=== PATIENT | female | born 1955 | race Hispanic/Latino ===

== ENCOUNTER 2025-02-22 22:48 | Inpatient (IN) | payer OTHER ==
[~2025-02-22] VITALS: Ht 162.6 cm; Wt 83.0 kg
[2025-02-22 23:37] LABS: IMMATURE GRANULOCYTE ABSOLUTE 0.05 K/uL (0-1); NUCLEATED RED BLOOD CELLS 0.0 % (0.0-0.19); PLATELET COUNT (AUTO) 385 K/uL (130-400); RED BLOOD CELL COUNT(AUTO) 4.08 MIL/uL (4.00-5.50); RED CELL DISTRIBUTION WIDTH 12.4 % (11.0-15.5); WHITE BLOOD COUNT (AUTO) 14.3 K/uL (4.8-10.8)
[2025-02-22 23:45] LABS: CREATININE 1.2 mg/dL (0.5-1.0); GLOMERULAR FILTR. RATE CALC 49.0 mL/min (>90); GLUCOSE,RANDOM 228.0 mg/dL (70-105); SODIUM SERUM 138.0 mmol/L (136-145); UREA NITROGEN, BLOOD 15.0 mg/dL (7-18)
[2025-02-22 23:53] LABS: CREATINE KINASE, TOTAL 184.0 U/L (21-232)
[2025-02-23] VITALS (21 sets, daily range): BP systolic 87–140; BP diastolic 50–78; PULSE 57–75; RESP 12–19; TEMP 97.3–98.6; O2SAT 94–96
[2025-02-23] MEDS: ASPIRIN 81MG CHEW TAB PO ONE (00:17)
[2025-02-23 00:43] LABS: APPEARANCE,URINE CLEAR (CLEAR); GLUCOSE, URINE (UA) NEGATIVE (NEGATIVE); LEUKOCYTE ESTERASE ,URINE NEGATIVE Leu/uL (NEGATIVE); NITRATE,URINE NEGATIVE (NEGATIVE); OCCULT BLOOD,URINE NEGATIVE (NEGATIVE)
[2025-02-23 00:51] LABS: ADD UA MICROSCOPIC NO
--- NOTE | 2025-02-23 01:33 | ERN ---
General Chief Complaint: Hip Pain/Injury Stated Complaint: LEFT HIP PAIN Time Seen by MD: 22:57 History of Present Illness Initial Comments Mrs Roe is a 69-year-old female who presents today with a chief complaint of left hip pain. Patient apparently was lift in her grandson after using the restroom when she started feeling pain in the left hip. Allergies: Coded Allergies: latex (Unverified Allergy, Unknown, 02/22/25) Home Meds Reported Medications Ergocalciferol (Vitamin D2) (Vitamin D2) 1,250 Mcg (27053 Unit) Capsule, 1 CAP PO QWEEK for 28 Days, #4 CAP 0 Refills 02/23/25 Metformin HCl (Metformin HCl) 500 Mg Tablet, 1 TAB PO BID for 30 Days, #60 TAB 0 Refills 02/23/25 Atorvastatin Calcium (LIPITOR) 20 Mg Tab, 1 TAB PO DAILY for 30 Days, #30 TAB 0 Refills 02/23/25 Dapagliflozin Propanediol (Farxiga) 5 Mg Tablet, 1 TAB PO DAILY for 30 Days, #30 TAB 0 Refills 02/23/25 Glipizide (Glipizide) 5 Mg Tablet, 1 TAB PO BID for 30 Days, #60 TAB 0 Refills 02/23/25 Losartan Potassium (Losartan Potassium) 50 Mg Tablet, 1 TAB PO DAILY for 30 Days, #30 TAB 0 Refills 02/23/25 Past Medical History Past Medical History: Diabetes-Type II, High Cholesterol, Hypertension Medical History Other: PSORIASIS Past Surgical History: None ROS Dictation Constitutional: Negative for fever,chills, and weight loss Eyes: Negative for injury, pain,redness, and discharge ENT: Negative for injury,pain or swelling Cardiovascular: Negative for chest pain, palpitations, and edema Respiratory: Negative for shortness of breath, cough, and wheezing, Abdomen/GI: Negative for abdominal pain, nausea, vomiting, diarrhea, and constipation Back: Negative for injury and pain : Negative for injury, bleeding and discharge MS/Extremity: Left hip pain Skin: Negative for rash, and discoloration Neuro: Negative for headache, weakness, numbness, tingling, and seizure Psych: Negative for suicide ideation, homicidal ideation, and hallucinations Physical Exam Physical Exam Dictation General: awake, alert, NAD Head/Face: Normocephalic, atraumatic Eyes: PERRL, EOMI, vision at baseline ENT: oral cavity clear, TMs clear, no signs of infection Neck: Trachea midline, supple, no nuchal rigidity Cardiovascular: RRR, normal S1/S2, No MRGs, no JVD Respiratory: CTAB, no respiratory distress, No rales or wheezes Abdomen: Soft, non-tender, non-distended, normal bowel sounds, no guarding or rebound. Skin: Warm, dry, normal turgor, no rash MS/Extremity: Pain with palpation and extension of the left hip. Neuro: COAx4, GCS 15, strength 5/5, CN 2-12 intact, normal cerebellar exam, normal gait, Psych: Normal behavior, mood, and affect normal Results Laboratory and Microbiology Lab and Micro Result Laboratory Tests Test 02/22/25 23:27 02/22/25 23:31 02/22/25 23:37 02/23/25 00:38 Urine Color LIGHT-YELLOW (YELLOW) Urine Appearance CLEAR (CLEAR) Urine pH 7.5 (5.0-8.0) Urine Specific [place] 1.024 (1.001-1.031) Urine Protein NEGATIVE mg/dL (NEGATIVE) Urine Glucose (UA) NEGATIVE mg/dL (NEGATIVE) Urine Ketones NEGATIVE mg/dL (NEGATIVE) Urine Occult Blood NEGATIVE (NEGATIVE) Urine Nitrate NEGATIVE (NEGATIVE) Urine Bilirubin NEGATIVE mg/dL (NEGATIVE) Urine Urobilinogen 0.2 mg/dL (0.2-1.0) Urine Leukocyte Esterase NEGATIVE Marvin/uL White Blood Count 14.3 K/uL (4.8-10.8) H Red Blood Count 4.08 MIL/uL (4.00-5.50) Hemoglobin 12.3 g/dL (12.0-16.0) Hematocrit 36.5 % (36-48) Mean Corpuscular Volume 89.5 fL (79-99) Mean Corpuscular Hemoglobin 30.1 pg (27.0-33.0) Mean Corpuscular Hemoglobin Concent 33.7 g/dL (32.0-36.0) Red Cell Distribution Width 12.4 % (11.0-15.5) Platelet Count 385 K/uL (130-400) Mean Platelet Volume 9.6 fL (7.5-10.5) Immature Granulocyte % (Auto) 0.3 % (0-1) Neutrophils (%) (Auto) 85.3 % (40.0-77.0) H Lymphocytes (%) (Auto) 10.4 % (21.0-51.0) L Monocytes (%) (Auto) 2.9 % (3.0-13.0) L Eosinophils (%) (Auto) 0.6 % (0.0-8.0) Basophils (%) (Auto) 0.5 % (0.0-5.0) Neutrophils # (Auto) 12.2 K/uL (1.8-7.7) H Lymphocytes # (Auto) 1.5 K/uL (1.0-4.8) Monocytes # (Auto) 0.4 K/uL (0.1-1.0) Eosinophils # (Auto) 0.08 K/uL (0.00-0.70) Basophils # (Auto) 0.07 K/uL (0.00-0.20) Absolute Immature Granulocyte (auto 0.05 K/uL (0-1) Nucleated Red Blood Cells 0.0 % (0.0-0.19) Sodium Level 138 mmol/L (136-145) Potassium Level 4.1 mmol/L (3.5-5.1) Chloride Level 104 mmol/L (101-111) Carbon Dioxide Level 26 mmol/L (21-32) Blood Urea Nitrogen 15 mg/dL (7-18) Creatinine 1.2 mg/dL (0.5-1.0) H Glomerular Filtration Rate Calc 49 mL/min (>90) Random Glucose 228 mg/dL (70-105) H Total Calcium 9.0 mg/dL (8.5-10.1) Total Creatine Kinase 184 U/L (21-232) Troponin I High Sensitivity 7702.9 ng/L (4-50) *H 9129 ng/L (4-50) *H B-Type Natriuretic Peptide 105 pg/mL (0-100) H Activated Partial Thromboplast Time 26.7 SEC (26.3-35.5) Total Bilirubin 0.5 mg/dL (0.2-1.0) Direct Bilirubin 0.2 mg/dL (0.0-0.3) Aspartate Amino Transf (AST/SGOT) 32 U/L (10-37) Alanine Aminotransferase (ALT/SGPT) 26 U/L (12-78) Alkaline Phosphatase 72 U/L (50-136) Total Protein 6.8 g/dL (6.0-8.3) Albumin 3.5 g/dL (3.5-5.0) Thyroid Stimulating Hormone (TSH) 1.41 uIU/mL (0.36-3.74) MDM Patient did have elevated enzymes including troponins that are 7000 and then ultimately 9000. Cardiology was consulted and recommended starting heparin drip with Plavix and aspirin. Patient did have films that were initially up another patient. Radiology is currently correcting her right hip films that did not belong to her. MDM: Differential diagnosis: NSTEMI Rationale: Tests considered and ordered secondary to shared decision making include: labs, ECG and radiology Previous outside records reviewed: Old ER visits. Risk of complication and/or morbidity or mortality of patient management: None Medications-Per medication reconciliation Need for hospitalization: Patient does meet criteria for hospitalization. Need for emergency major/minor surgery: No There are no social concerns with this patient. Prescription drug management Prescriptions will include symptomatic care Patient's prior external medical records from other ER visits were reviewed by me as indicated. Prior testing and results from previous visits were reviewed. Prior tests were taken into account with medical decision making and resource utilization, independent historian/historians were used to obtain complete medical history. I independently interpreted the test that were performed, results were reviewed by me and considered findings on radiology if ordered. Medical management and examination interpretation discussions were had by me with other qualified healthcare professionals as indicated for the patient's care. ED Course Orders Procedure Category Date Status Time O2 Nc Keep Sats CPOE 02/22/25 Transmitted Greater 92% 23:16 Notify Md: Spo2 < 88% CPOE 02/22/25 Transmitted 23:16 Cbc With Differential LAB 02/22/25 Complete 23:16 Cardiac Panel LAB 02/22/25 Complete 23:16 Basic Metabolic Panel LAB 02/22/25 Complete 23:16 Morphine 4mg Syg PHA 02/22/25 Complete (Morphine 4mg Syg) 23:30 12 Lead Ekg Tracing- EKG 02/22/25 Logged Technical 23:57 Aspirin 81mg Chew Tab PHA 02/23/25 Complete (Aspirin 81mg Chew 00:00 Troponin I High LAB 02/22/25 Complete Sensitivity 23:57 Urinalysis Profile LAB 02/23/25 Complete 00:33 Initiate Heparin FRANCINE 02/23/25 In Process Treatment Pro 01:09 Partial LAB 8/6/25 Complete Thromboplastin Time 01:09 Heparin 5,000 Unit PHA 02/23/25 In Process Vial (Heparin 5,000 U 02:00 Heparin 25,000 PHA 02/23/25 In Process Units/250ml D5w 02:00 Heparin Protocol CPOE 02/23/25 Transmitted Monitoring 01:09 Heparin 5,000 Unit PHA 02/23/25 Complete Vial (Heparin 5,000 U 01:10 Heparin 25,000 PHA 02/23/25 Complete Units/250ml D5w 01:11 Hip Unilat 2-3vw Left RAD 02/23/25 Resulted 01:16 Clopidogrel 300mg Tab PHA 02/23/25 Complete (Plavix 300mg Tab) 01:30 Metoprolol Tartrate PHA 02/23/25 In Process 25 Mg Tab (Lopressor 09:00 Aspirin 325mg Tab PHA 02/23/25 Complete (Aspirin 325mg Tab) 01:30 Current Medications Medications (Trade) Dose Ordered Sig/Beba Route PRN Reason Start Time Stop Time Status Last Admin Dose Admin Aspirin (Aspirin 325mg Tab) 325 mg ONCE ONCE PO 02/23/25 01:30 02/23/25 01:31 DC 02/23/25 01:35 Aspirin (Aspirin 81mg Chew Tab) 81 mg ONCE ONCE PO 02/23/25 00:00 02/23/25 00:01 DC 02/23/25 00:17 Clopidogrel Bisulfate (plaVIX 300MG TAB) 300 mg ONCE ONCE PO 02/23/25 01:30 02/23/25 01:31 DC 02/23/25 01:35 Heparin Sodium (Porcine) (HEParin 5,000 UNIT VIAL) 5,000 unit STK-MED ONCE .ROUTE 02/23/25 01:10 02/23/25 01:11 DC Heparin Sodium/ Dextrose 250 ml @ As Directed STK-MED ONCE IV 02/23/25 01:11 02/23/25 01:12 DC Morphine Sulfate (morPHINE 4MG SYG) 4 mg ONCE ONCE IVP 02/22/25 23:30 02/22/25 23:31 DC 02/22/25 23:27 Vital Signs Date Time Temp Pulse Resp B/P (MAP) Pulse Ox O2 Delivery O2 Flow Rate FiO2 02/22/25 23:50 98.8 75 20 133/65 98 Room Air* 0 21 02/22/25 22:50 98.1 67 16 139/78 94 Room Air 0 DX & DISP Disposition: Inpatient Departure Impression: Primary Impression: NSTEMI (non-ST elevation myocardial infarction) Condition: Stable Referrals: SAMIRA HAYWOOD (PCP) PRINCESS WALLACE MD Feb 23, 2025 01:33
[2025-02-23] MEDS: ASPIRIN 325MG TAB PO ONE (01:35)
--- NOTE | 2025-02-23 01:43 | HP ---
[facility] HISTORY AND PHYSICAL Date of Service: Feb 23, 2025 Time of Service: 01:43 SAMIRA HAYWOOD (PCP) Attending/supervising physicians: Dr. Dennis and Dr. Menard HISTORY OF PRESENT ILLNESS: Ms. Roe is a 69-year-old female who presented to [facility] for evaluation of left hip pain. She reports that she was moving her grandson and twisted the hip which caused severe pain. The patient denies any fall. In ED the patient was found to be negative for fracture. [Off note: ED physician reports that the patient is x-ray got messed up with another patient's x-ray. The x-ray on the patient chart says "acute subcapital fracture of the right femur" but that is the results of another patient". This will be corrected in the morning per Radiology.] Troponin levels were high at 7702 and repeat troponin level 9129. The patient denied any chest pain, shortness of breath, any other pain, problem or concern besides the hip pain. ED provider reports that he spoke to Dr. Perez. He reports that Dr. Perez recommended heparin drip, Plavix, beta tyler, and aspirin which were administered in ED. ED provider requested patient be admitted to the hospital with the diagnosis of elevated troponins and left hip pain. I assessed the patient at bedside in room number ED 15. The patient continued to deny any chest pain, shortness of breath. He reports that the only pain is on her left hip. I informed her of labs, diagnostics, and plan of care. She verbalized understanding and is in agreement with the plan. Plan and assessment are listed below. REVIEW OF SYSTEMS 12-ROS reviewed with with patient. All pertinent positives mentioned above. Otherwise negative, noncontributory, non-pertinent. PAST MEDICAL HISTORY: As mentioned above PAST SURGICAL HISTORY: None PAST SOCIAL HISTORY: Denies alcohol, tobacco, illicit drug use FAMILY HISTORY: Noncontributory Coded Allergies: latex (Unverified Allergy, Unknown, 02/22/25) PHYSICAL EXAM GENERAL APPEARANCE: The patient is awake, alert, and oriented, in no acute cardiopulmonary distress. NEUROLOGICAL: Cranial nerves II-XII grossly intact. Motor is 5/5 in bilateral upper and lower extremities proximal to distal. No sensory deficits. HEENT: Face is symmetric. Pupils are equal and reactive. Extraocular movements are intact. NECK: Supple. No JVD. No thyromegaly. No submental, submandibular, pre- /postauricular, occipital or supraclavicular lymphadenopathy. CHEST: Normal chest expansion. No Telemetry. LUNGS: Absence of any rales, rhonchi or any wheezing. CARDIOVASCULAR: Regular. S1 and S2 normal. No appreciable rubs, murmurs or gallops. ABDOMEN: Soft, nontender, and nondistended. There is no rebound, voluntary guarding, or rigidity. : Deferred. No Magallanes. EXTREMITIES: Non-edematous and not cyanotic. No clubbing. Good capillary refill. Limited range of motion to the left hip due to pain. SKIN: No skin breakdown. Vital Sign (Last 24 Hours) 02/22/25 23:50 Temp 98.8 Pulse 75 Resp 20 B/P (MAP) 133/65 Pulse Ox 98 O2 Delivery Room Air* O2 Flow Rate 0 FiO2 21 LABS: Laboratory: Test 02/23/25 00:38 02/22/25 23:37 02/22/25 23:31 02/22/25 23:27 Range/Units Troponin I High Sensitivity 9129 *H 4-50 ng/L Activated Partial Thromboplast Time 26.7 26.3-35.5 SEC White Blood Count 14.3 H 4.8-10.8 K/uL Red Blood Count 4.08 4.00-5.50 MIL/uL Hemoglobin 12.3 12.0-16.0 g/dL Hematocrit 36.5 36-48 % Mean Corpuscular Volume 89.5 79-99 fL Mean Corpuscular Hemoglobin 30.1 27.0-33.0 pg Mean Corpuscular Hemoglobin Concent 33.7 32.0-36.0 g/dL Red Cell Distribution Width 12.4 11.0-15.5 % Platelet Count 385 130-400 K/uL Mean Platelet Volume 9.6 7.5-10.5 fL Immature Granulocyte % (Auto) 0.3 0-1 % Neutrophils (%) (Auto) 85.3 H 40.0-77.0 % Lymphocytes (%) (Auto) 10.4 L 21.0-51.0 % Monocytes (%) (Auto) 2.9 L 3.0-13.0 % Eosinophils (%) (Auto) 0.6 0.0-8.0 % Basophils (%) (Auto) 0.5 0.0-5.0 % Neutrophils # (Auto) 12.2 H 1.8-7.7 K/uL Lymphocytes # (Auto) 1.5 1.0-4.8 K/uL Monocytes # (Auto) 0.4 0.1-1.0 K/uL Eosinophils # (Auto) 0.08 0.00-0.70 K/uL Basophils # (Auto) 0.07 0.00-0.20 K/uL Absolute Immature Granulocyte (auto 0.05 0-1 K/uL Nucleated Red Blood Cells 0.0 0.0-0.19 % Sodium Level 138 136-145 mmol/L Potassium Level 4.1 3.5-5.1 mmol/L Chloride Level 104 101-111 mmol/L Carbon Dioxide Level 26 21-32 mmol/L Blood Urea Nitrogen 15 7-18 mg/dL Creatinine 1.2 H 0.5-1.0 mg/dL Glomerular Filtration Rate Calc 49 >90 mL/min Random Glucose 228 H 70-105 mg/dL Total Calcium 9.0 8.5-10.1 mg/dL Total Creatine Kinase 184 21-232 U/L Urine Color LIGHT-YELLOW YELLOW Urine Appearance CLEAR CLEAR Urine pH 7.5 5.0-8.0 Urine Specific [place] 1.024 1.001-1.031 Urine Protein NEGATIVE NEGATIVE mg/dL Urine Glucose (UA) NEGATIVE NEGATIVE mg/dL Urine Ketones NEGATIVE NEGATIVE mg/dL Urine Occult Blood NEGATIVE NEGATIVE Urine Nitrate NEGATIVE NEGATIVE Urine Bilirubin NEGATIVE NEGATIVE mg/dL Urine Urobilinogen 0.2 0.2-1.0 mg/dL Urine Leukocyte Esterase NEGATIVE NEGATIVE Marvin/uL Current Medications Medications (Trade) Dose Ordered Sig/Beba Route PRN Reason Start Time Stop Time Status Last Admin Dose Admin Acetaminophen (TYLenol 325MG TAB) 650 mg Q6H PRN PO FEVER/MILD PAIN LEVEL 1-3 02/23/25 02:00 03/25/25 01:59 UNV Acetaminophen (TYLenol 650MG SUPPOSITORY) 650 mg Q6H PRN RC FEVER / MILD PAIN 1-3 IF NPO 02/23/25 02:00 03/25/25 01:59 UNV Aspirin (Aspirin 81mg Chew Tab) 81 mg DAILY PO 02/23/25 09:00 03/25/25 08:59 UNV Docusate Sodium (COLace 100MG CAP) 100 mg BID PRN PO c 02/23/25 02:00 03/25/25 01:59 UNV Heparin Sodium (Porcine) (HEParin 5,000 UNIT VIAL) *calculation based on ACTUAL B... AD PRN IV HEPARIN PROTOCOL 02/23/25 02:00 03/25/25 01:59 Heparin Sodium/ Dextrose 250 ml @ 0 mls/hr Q6H IV 02/23/25 02:00 03/25/25 01:59 Insulin Human Regular (humuLIN R 100 UNIT/ML 3ML) INSULIN SLIDING SCAL... ACHS SQ 02/23/25 07:30 03/25/25 07:29 UNV Labetalol HCl (TRANdate 20MG SYG) 10 mg Q2H PRN IV SBP GREATER THAN 180 02/23/25 02:00 03/25/25 01:59 UNV Lactulose (Constulose 20gm/ 30ml Udcup) 20 gm Q6H PRN PO CONSTIPATION 02/23/25 02:00 03/25/25 01:59 UNV Metoprolol Tartrate (loprESSOR) 25 mg BID PO 02/23/25 09:00 03/25/25 08:59 Ondansetron HCl (zoFRAN 4MG INJ) 4 mg Q6H PRN IVP NAUSEA/VOMITING 02/23/25 02:00 03/25/25 01:59 UNV Temazepam (restORIL 15 MG CAP) 15 mg HS PRN PO INSOMNIA/SLEEP 02/23/25 02:00 03/25/25 01:59 UNV DIAGNOSTICS / RADIOLOGY: [ ] ASSESSMENT: Critically elevated troponins, rule out ACS Intractable left hip pain s/p twisting motion. Diabetes mellitus with hyperglycemia Hypertension Hypercholesteremia Psoriasis PLAN: -Admit to PCCU with continuous telemetry monitoring. -Troponin levels and EKG series. -Cardiology was consulted by ED who recommended heparin drip, Plavix, beta tyler, aspirin. [employer] team we will follow recommendations. -Resume home medication atorvastatin, losartan. -Hold home medication vitamin D2 weekly supplement, metformin, glipizide, and Farxiga. -Nitroglycerin sublingual as needed chest pain -2D echo in a.m. with heart clinic to read. -PRN medications for pain management, fever, N/V, constipation, hypertension. -Oxygen supplement as needed to maintain oxygen levels equal to or greater than 92% -Blood pressure checks every 4 hours and as needed. -Reconcile home medications once available. -Glucometer checks before meals and at bedtime with insulin regular sliding scale. -Blood pressure checks every 4 hours and as needed. - Monitor renal and liver function. -Monitor electrolytes and treat accordingly PRN -AM labs. -GI and DVT prophylaxis -Further plan/orders per hospitalization course. ADVANCED CARE PLANNING 1. Which of the following were discussed? Hospice Care - No Therapeutic options - Yes Advance Directives - Yes Other discussions - 2. Discussed with who? The patient 3. Voluntary nature of this service was explained to the patient? Yes 4. Amount of time spent - __ Over 35 minutes 5. Reviewed by Physician? (if this service was performed by BECKY) Yes ATTESTATION BY PHYSICIAN I have seen and examined the patient. I reviewed the documentation, medical decision making, and treatment plan as noted by the resident provider above. I agree with the findings and plan of care. [facility] Feb 23, 2025 01:43
[2025-02-23 02:10] LABS: ASPARTATE AMINOTRANSFERASE 32.0 U/L (10-37); TOTAL PROTEIN, SERUM 6.8 g/dL (6.0-8.3)
--- NOTE | 2025-02-23 02:22 | HMCIMG ---
EXAM: CR Pelvis and Left Hip CLINICAL HISTORY: Pain. COMPARISON: None provided. FINDINGS: Questionable acute subcapital fracture of the right femur with mild femoral neck shortening. Mild osteopenia. 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 The remaining bones are within normal limits. Grossly unremarkable soft tissues. IMPRESSION: Questionable acute subcapital fracture of the right femur with mild femoral neck shortening. Recommend CT right hip for further evaluation. /[place]
[2025-02-23] MEDS ORDERED: METF-444 PO (03:26)
[2025-02-23] MEDS ORDERED: ATOR10 PO (03:26)
[2025-02-23] MEDS ORDERED: ERGO500093 PO (03:26)
[2025-02-23] MEDS ORDERED: GLIP5TAB15 PO (03:26)
[2025-02-23] MEDS ORDERED: DAPA5TAB PO (03:26)
[2025-02-23] MEDS ORDERED: LOSA50TA64 PO (03:26)
--- NOTE | 2025-02-23 05:09 | NUR ---
PATIENT REFUSED ABG
--- NOTE | 2025-02-23 06:21 | PN ---
[facility] Cardiology Progress Note CARDIOLOGY CONSULTATION FEBRUARY 23, [address] Carmela Hawthorne Chief complaint: This is a 69-year-old female who presents with left hip pain whom we are asked to evaluate for elevated troponin. History of present illness: The patient had listed her granddaughter up at home and began experiencing left pain. She came to the emergency room for evaluation of this problem. Incidentally she had troponins checked which were 7702 and 9129. The patient denies any chest pain or shortness of breath. Her electrocardiogram showed sinus rhythm with nonspecific ST-T abnormalities. Past medical history: The patient has a history of hypertension diabetes mellitus type 2 and dyslipidemia. She was seen several months ago by Dr. Hawthorne for evaluation of a murmur. Her 2D echo showed normal systolic LV function and a sclerotic aortic valve. At that time she was also noted to have a bruit and was told that she could have a carotid Doppler study in six months. There was no history of rheumatic fever heart murmur previous myocardial infarction CVAs ulcers phlebitis thyroid disease kidney or liver disease. Review of systems: Denies syncope PND orthopnea chest pains palpitations or edema. No recent fevers sweats or chills. No hemoptysis hematemesis or melena. Allergies: Latex Surgical history: No prior surgical procedures Social history: She is a nonsmoker nondrinker Family history: There was no family history of early atherosclerotic heart disease Home Medications: Atorvastatin 20 mg daily dapagliflozin 5 mg daily vitamin-D glipizide 5 mg daily losartan 50 mg daily metformin 500 mg b.i.d.. Hospital medications: Aspirin 81 mg daily atorvastatin 10 mg daily clopidogrel 75 mg daily after a 300 mg loading dose in the emergency room. Heparin protocol losartan 50 mg daily metoprolol tartrate 25 mg b.i.d.. Physical exam: Blood pressure is 130/60 heart rate is in the 60s the patient is afebrile. There was no elevation of the jugular venous pressure . Carotid bruit noted. S1 normal S2 physiologically split. 2/6 systolic ejection murmur is present. Abdomen is soft extremities show no edema. She is alert and oriented. Laboratory studies: Potassium 4.1 BUN 15 creatinine 1.2 estimated GFR of 49. White count 93905 hemoglobin 12.3 platelet count [id number]. Hip x-ray : Questionable acute subcapital fracture of the right femur and shortening of the right femoral neck Assessment: 1. Right hip pain with questionable subcapital fracture of the right femur on hip x-ray 2. Elevated troponins consistent with non ST-elevation myocardial infarction 3. Diabetes mellitus type 2 4. Chronic kidney disease stage IIIA 5. Dyslipidemia 6. Hypertension Plan: Plans are for CT scan of the right hip as recommended by Radiology. We will continue with aspirin clopidogrel heparin metoprolol. 2D echocardiogram is pending. I have had a discussion with the the patient regarding her troponin elevations. Findings would suggest a non ST-elevation NH. as noted she had no chest pain and nonspecific ST findings on EKG. We have discussed options and I have advised left heart catheterization. Risks benefits and alternatives have been fully discussed and reviewed. If there was no significant coronary artery disease we will also consider a CT pulmonary angiogram. NAKIA LOPEZ MD Feb 23, 2025 06:21
--- NOTE | 2025-02-23 07:14 | EKG ---
[facility] Test Date: 2025-02-22 Test Time: 23:59:52 Pat Name: MARYANNE WAITE Department: EDHIP Room: 224 Gender: F Mass Spec: [id number] : 1955 Requested By: PRINCESS WALLACE Order Number: [id number] Reading MD: Javan Hawthorne Measurements Intervals [place] Rate: 66 P: 29 CT: 176 QRS: 25 QRSD: 79 T: 122 QT: 434 QTc: 454 Interpretive Statements Sinus rhythm Nonspecific T abnormalities, lateral leads No previous ECG available for comparison Electronically Signed On 02-26-2025 19:46:37 CDT by Javan Hawthorne Please click the below link to view image of tracing.
[2025-02-23 07:27] LABS: NUCLEATED RED BLOOD CELLS 0.0 % (0.0-0.19); PLATELET COUNT (AUTO) 367.0 K/uL (130-400); RED BLOOD CELL COUNT(AUTO) 3.83 MIL/uL (4.00-5.50); RED CELL DISTRIBUTION WIDTH 12.6 % (11.0-15.5); WHITE BLOOD COUNT (AUTO) 11.4 K/uL (4.8-10.8)
[2025-02-23] MEDS ORDERED: 0.9% NACL 500ML IV.SOLN 500 ML IV SCH (07:30)
--- NOTE | 2025-02-23 08:17 | NUR ---
HEPARIN ON HOLD APTT>139
[2025-02-23 08:23] LABS: ASPARTATE AMINOTRANSFERASE 39.0 U/L (10-37); CREATININE 0.9 mg/dL (0.5-1.0); GLOMERULAR FILTR. RATE CALC 69.0 mL/min (>90); GLUCOSE,RANDOM 140.0 mg/dL (70-105); PHOSPHORUS 4.8 mg/dL (2.5-4.9); SODIUM SERUM 140.0 mmol/L (136-145); TOTAL PROTEIN, SERUM 6.6 g/dL (6.0-8.3); UREA NITROGEN, BLOOD 14.0 mg/dL (7-18)
[2025-02-23] MEDS: ASPIRIN 81MG CHEW TAB PO SCH (09:00)
--- NOTE | 2025-02-23 09:17 | NUR ---
HEPARIN RESTARTED AT 15 U/KG/HR
--- NOTE | 2025-02-23 10:05 | NUR ---
PT IS CONSENTED FOR THE LEFT HEART CATHETERIZATION.GROIN SHAVED
[2025-02-23] MEDS ORDERED: LIDOCAINE HCL 400MG/20ML VIAL ONE (10:27)
[2025-02-23] MEDS ORDERED: HEParin-NS 1,000 UNIT/500 ML 1,000 ML IV ONE (10:28)
[2025-02-23] MEDS ORDERED: IOHEXOL 350 MG/ML 100ML INFUS..BTL IV ONE (10:30)
--- NOTE | 2025-02-23 10:43 | NUR ---
DCP:HOME Pt currently lives alone in her home. Pt does not have any DME, home health, or provider services. Pt states that she is able to complete ADLs independently. PCP is Marta Tena and uses [facility] for any RX needs. At DC pt will want to go home and family can assist with transportation. Addendum: 02/23/25 at 1045 by JASVIR ROLDAN SS Amended: Links added.
--- NOTE | 2025-02-23 10:46 | NUR ---
PT TO [employer]
[2025-02-23] MEDS ORDERED: MIDAZOLAM HCL 1 MG/ML 2ML VIAL ONE (10:59)
[2025-02-23] MEDS ORDERED: IOHEXOL-350 50ML VIAL IV ONE (11:06)
[2025-02-23] MEDS ORDERED: DEXTROSE 50%-WATER 50 ML DISP.SYRIN IV PRN (11:30)
[2025-02-23] MEDS ORDERED: GLUCAGON 1MG KIT 1 MG ML IM PRN (11:30)
--- NOTE | 2025-02-23 11:31 | PRN ---
Cath Procedure Report CATH PROCEDURE REPORT CARDIAC CATHETERIZATION REPORT Date of Service: Feb 23, 2025 After informed consent the patient was prepped and draped in the usual fashion. She received 1 mg of Versed for conscious sedation. She received 16 cc of 2% xylocaine in the right inguinal area. A six [place] sheath was introduced into the right femoral artery using modified Seldinger technique. A Jelena four right six [place]ian diagnostic catheter was advanced over guidewire to the aortic root. Wire was removed and catheter engaged into the [place] right coronary artery which was visualized. The catheter was removed and a Jelena four left six [place] diagnostic catheter was advanced over guidewire to the aortic root. Wire was removed and catheter engaged into the left main coronary artery. The left coronary system was visualized in multiple planes the catheter was removed. A pigtail catheter was then advanced over guidewire across the aortic valve. Wire was removed and hemodynamics measured. A ventriculogram in the RICHARDS projection was performed and pullback with continuous hemodynamic monitoring was performed. The catheter was removed. ACT was 164. A sheathogram performed and Angio-Seal closure device applied. The entire procedure was well tolerated without complications. Findings: The right coronary artery is a nondominant vessel free of obstruction. The left main coronary artery is free of obstruction. The circumflex artery is a superdominant vessel. It is free of obstruction. It gives rise to two obtuse marginal artery is free of obstruction and a PDA extend to the apex of the heart also free of obstruction. The left anterior descending artery extends to the apex of the heart distally becomes a 1 mm vessel. It is free of obstruction gives rise to normal diagonal branches. There was no aortic stenosis plus one mitral regurgitation. There was ballooning of the apex consistent with a diagnosis of takotsubo syndrome. LV ejection fraction of 35%. Summary: Normal coronary arteries and ballooning of the apex consistent with ta kotsubo syndrome. Medical management advised. Report dictated by NAKIA Jones MD, MD Feb 23, 2025 11:31
[2025-02-23 12:40] LABS: INR 1.08 (0.85-1.15)
[2025-02-23 16:23] LABS: INR 0.97 (0.85-1.15)
--- NOTE | 2025-02-23 22:08 | HMCSR ---
APPROVED REPORT EXAM: Two-dimensional and M-mode echocardiogram with Doppler and color Doppler. INDICATION ICD: Elevated troponin 2D Dimensions RVDd2.6 cmLVEF(%)52.0 (>50%)LVED Vol(simp.)94.0 mL IVSd1.1 (0.7-1.1cm)FS(%)26 %LVES Vol(simp.)57.0 mL LVDd4.4 (3.8-5.6cm)LA (2D)3.2 (1.6-4.0cm)LVEF(%, simp.)36 % PWd1.2 (0.7-1.1cm)Ao Root(2D)3.1 (2.0-3.7cm)LA ESV INDEX (BP)20.74 mL/m2 IVSs1.5 cmLVOT diam1.9 (1.8-2.4cm) LVDs3.3 (2.5-4.0cm) PWs1.5 cm Deformation Strain Apical 4-10.7 % Apical 2-12.4 % Apical 3-10.7 % Global Strain-11.3 % M-Mode Dimensions EPSS0.7 cm LA (MM)4.9 (1.6-4.0cm) Ao Root(MM)3.2 (2.0-3.7cm) Aortic Valve AoV Vmax2.0 m/Vel Peak GR15.3 mmHgLVOT Vmax1.1 m/s AoV VTI0.4 mAo Mean GR8.4 mmHgLVOT VTI0.26 m JOSE (VMAX)1.53 cm2AVA (VTI) 1.9 cm2 Mitral Valve MV E Vmax81.5 cm/sDECEL Actj408 ms MV A Kxvy547.7 cm/sP 1/2 T100 ms E/A ratio0.7MVA (PHT)2.2 cm2 TDI E/E' Fotyan03.3E/E' Ppkrsyc08.1 Medial E' Peak V3.66 cm/sLateral E' Peak V5.38 cm/s Pulmonary Valve PV Vmax1.1 m/sPV VTI0.24 mPV Mean GR2.9 mmHg PV Peak GR4.8 mmHg Left Ventricle There is apical ballooning of the left ventricle. The mid/apical anterior, inferior, anterolateral, a nd inferolateral ko are severely hypokinetic/akinetic. The basal segments of all ko are grossly normal in function. Mild concentric left ventricular hypertrophy. Left ventricle systolic function i s moderate to severely depressed, estimated LVEF 35-40%. Stage I diastolic dysfunction. Right Ventricle The right ventricle is normal size. The right ventricular systolic function is normal. Atria The left atrium size is normal. The right atrium size is normal. Aortic Valve Aortic valve is trileaflet. The leaflets are moderately thickened and calcified. Trace aortic regurgi tation. There is no aortic valvular stenosis. Mitral Valve The mitral valve is normal in structure. The leaflets are mildly thickened and calcified. Trace mitr al regurgitation. There is no mitral valve stenosis. Tricuspid Valve The tricuspid valve is normal in structure. Trace tricuspid regurgitation. RVSP is normal. Pulmonic Valve Pulmonic valve is not well visualized. Great Vessels The aortic root is normal in size. The IVC is normal in size and collapses >50% with inspiration. Pericardium There is no pericardial effusion. Other Information Quality : Adequate Conclusion There is apical ballooning of the left ventricle. Mild concentric left ventricular hypertrophy. The mid/apical anterior, inferior, anterolateral, and inferolateral ko are severely hypokinetic/ak inetic. The basal segments of all ko are grossly normal in function. Left ventricle systolic function is moderate to severely depressed, estimated LVEF 35-40%. Stage I diastolic dysfunction. Trace aortic regurgitation. Trace mitral regurgitation. Trace tricuspid regurgitation. PASP normal. There is no pericardial effusion. The above-mentioned findings are highly suggestive of Takotsubo cardiomyopathy. Clinical correlation is advised.
[2025-02-24] VITALS (7 sets, daily range): BP systolic 104–166; BP diastolic 20–72; PULSE 62–100; RESP 18–22; TEMP 97.9–98.8; O2SAT 94–96
[2025-02-24 04:10] LABS: NUCLEATED RED BLOOD CELLS 0.0 % (0.0-0.19); PLATELET COUNT (AUTO) 321.0 K/uL (130-400); RED BLOOD CELL COUNT(AUTO) 3.66 MIL/uL (4.00-5.50); RED CELL DISTRIBUTION WIDTH 12.6 % (11.0-15.5); WHITE BLOOD COUNT (AUTO) 8.3 K/uL (4.8-10.8)
[2025-02-24 04:26] LABS: CREATININE 0.9 mg/dL (0.5-1.0); GLOMERULAR FILTR. RATE CALC 69.0 mL/min (>90); GLUCOSE,RANDOM 120.0 mg/dL (70-105); PHOSPHORUS 4.4 mg/dL (2.5-4.9); SODIUM SERUM 139.0 mmol/L (136-145); UREA NITROGEN, BLOOD 17.0 mg/dL (7-18)
--- NOTE | 2025-02-24 06:42 | PN ---
[facility] Cardiology Progress Note CARDIOLOGY PROGRESS NOTE FEBRUARY 24, 2025 Problems: 1. Left hip pain with suspected subcapital fracture of the right femur 2. Non ST-elevation myocardial infarction 3. Takotsubo syndrome with normal coronary arteries and apical ballooning, ejection fraction 35% 4. Diabetes mellitus type 2 5. Chronic kidney disease stage IIIA 6. Dyslipidemia 7. Hypertension The patient underwent left heart catheterization yesterday and was found to have normal coronary arteries with a apical ballooning consistent with takotsubo syndrome. This morning blood pressure 108/60 heart rate in the 70s. The patient is afebrile. White count has come down to 8.3 hemoglobin 11.2 platelet count [id number]. Potassium 4.1 BUN 17 creatinine 0.9. The patient continues on aspirin atorvastatin Lovenox furosemide insulin scale metoprolol tartrate. Given left ventricular dysfunction we will switch over to metoprolol succinate. We will add spironolactone and dapagliflozin to her regimen. The patient he is concerned about metoprolol as she had to stop this medication as an outpatient due to bradycardia. She was taking 50 mg at the time. I will try 12.5 mg and observe. States she was already taking Farxiga at home. We will repeat her potassium tomorrow with spironolactone. She continues to have pain in the left hip and I will order a CT scan of the hip for further evaluation. If there was no fracture and vital signs are stable in the next 24 hours she can be di scharged home. We will plan on a 90 day echo to reassess ejection fraction. NAKIA LOPEZ MD Feb 24, 2025 06:42
[2025-02-24] MEDS: ENOXAPARIN SODIUM 40 MG/0.4 ML SYRINGE SQ SCH (09:23)
[2025-02-24] MEDS: SPIRONOLACTONE 25 MG TAB PO SCH (09:24)
[2025-02-24] MEDS: EMPAGLIFLOZIN 10MG TABLET PO SCH (09:30)
--- NOTE | 2025-02-24 10:35 | PN ---
[facility] PROGRESS NOTE Date of Service: Feb 24, 2025 Time of Service: 10:29 SUBJECTIVE: Patient continues to have hip pain. She underwent left heart catheterization yesterday which demonstrated stress cardiomyopathy, coronaries were nonocclusive REVIEW OF SYSTEMS 12-ROS reviewed with with patient. All pertinent positives mentioned above. Otherwise negative, noncontributory, non-pertinent. PHYSICAL EXAM GENERAL APPEARANCE: The patient is awake, alert, and oriented, in no acute cardiopulmonary distress. NEUROLOGICAL: Cranial nerves II-XII grossly intact. Motor is 5/5 in bilateral upper and lower extremities proximal to distal. No sensory deficits. HEENT: Face is symmetric. Pupils are equal and reactive. Extraocular movements are intact. NECK: Supple. No JVD. No thyromegaly. No submental, submandibular, pre-/post auricular, occipital or supraclavicular lymphadenopathy. CHEST: Normal chest expansion. No Telemetry. LUNGS: Absence of any rales, rhonchi or any wheezing. CARDIOVASCULAR: Regular. S1 and S2 normal. No appreciable rubs, murmurs or gallops. ABDOMEN: Soft, nontender, and nondistended. There is no rebound, voluntary guarding, or rigidity. : Deferred. No Magallanes. EXTREMITIES: Non-edematous and not cyanotic. No clubbing. Good capillary refill. Limited range of motion to the left hip due to pain. SKIN: No skin breakdown. Vital Signs (last 8hr) Date Time Temp Pulse Resp B/P (MAP) Pulse Ox O2 Delivery O2 Flow Rate FiO2 02/24/25 08:00 98.6 63 20 132/53 97 Room Air 02/24/25 03:30 98.1 73 18 108/60 93 Room Air LABS: Laboratory: Test 02/24/25 06:03 02/24/25 03:59 02/23/25 19:40 02/23/25 16:04 Range/Units Whole Blood Glucose 109 70-110 MG/DL White Blood Count 8.3 # 4.8-10.8 K/uL Red Blood Count 3.66 L 4.00-5.50 MIL/uL Hemoglobin 11.2 L 12.0-16.0 g/dL Hematocrit 33.0 L 36-48 % Mean Corpuscular Volume 90.2 79-99 fL Mean Corpuscular Hemoglobin 30.6 27.0-33.0 pg Mean Corpuscular Hemoglobin Concent 33.9 32.0-36.0 g/dL Red Cell Distribution Width 12.6 11.0-15.5 % Platelet Count 321 130-400 K/uL Mean Platelet Volume 9.6 7.5-10.5 fL Nucleated Red Blood Cells 0.0 0.0-0.19 % Sodium Level 139 136-145 mmol/L Potassium Level 4.1 3.5-5.1 mmol/L Chloride Level 106 101-111 mmol/L Carbon Dioxide Level 25 21-32 mmol/L Blood Urea Nitrogen 17 7-18 mg/dL Creatinine 0.9 0.5-1.0 mg/dL Glomerular Filtration Rate Calc 69 >90 mL/min Random Glucose 120 H 70-105 mg/dL Total Calcium 8.2 L 8.5-10.1 mg/dL Phosphorus Level 4.4 2.5-4.9 mg/dL Magnesium Level 1.90 1.80-2.40 mg/dL Troponin I High Sensitivity 8718 *H 4-50 ng/L Prothrombin Time 10.3 9.6-11.6 SEC Prothromb Time International Ratio 0.97 0.85-1.15 Activated Partial Thromboplast Time 26.1 #L 26.3-35.5 SEC Test 02/23/25 11:13 02/23/25 06:30 02/23/25 00:38 02/22/25 23:31 Range/Units Kaolin Activated Coagulation Time 164 H 74-137 SEC Hemoglobin A1c 6.6 H 4.0-6.0 % Estimated Average Glucose (eAG) 143 H 70-126 mg/dL Total Bilirubin 0.7 # 0.2-1.0 mg/dL Aspartate Amino Transf (AST/SGOT) 39 H 10-37 U/L Alanine Aminotransferase (ALT/SGPT) 29 12-78 U/L Alkaline Phosphatase 74 50-136 U/L B-Type Natriuretic Peptide 227 H 0-100 pg/mL Total Protein 6.6 6.0-8.3 g/dL Albumin 3.4 L 3.5-5.0 g/dL Thyroid Stimulating Hormone (TSH) 1.20 0.36-3.74 uIU/mL Direct Bilirubin 0.2 0.0-0.3 mg/dL Immature Granulocyte % (Auto) 0.3 0-1 % Neutrophils (%) (Auto) 85.3 H 40.0-77.0 % Lymphocytes (%) (Auto) 10.4 L 21.0-51.0 % Monocytes (%) (Auto) 2.9 L 3.0-13.0 % Eosinophils (%) (Auto) 0.6 0.0-8.0 % Basophils (%) (Auto) 0.5 0.0-5.0 % Neutrophils # (Auto) 12.2 H 1.8-7.7 K/uL Lymphocytes # (Auto) 1.5 1.0-4.8 K/uL Monocytes # (Auto) 0.4 0.1-1.0 K/uL Eosinophils # (Auto) 0.08 0.00-0.70 K/uL Basophils # (Auto) 0.07 0.00-0.20 K/uL Absolute Immature Granulocyte (auto 0.05 0-1 K/uL Total Creatine Kinase 184 21-232 U/L Test 02/22/25 23:27 Range/Units Urine Color LIGHT-YELLOW YELLOW Urine Appearance CLEAR CLEAR Urine pH 7.5 5.0-8.0 Urine Specific [place] 1.024 1.001-1.031 Urine Protein NEGATIVE NEGATIVE mg/dL Urine Glucose (UA) NEGATIVE NEGATIVE mg/dL Urine Ketones NEGATIVE NEGATIVE mg/dL Urine Occult Blood NEGATIVE NEGATIVE Urine Nitrate NEGATIVE NEGATIVE Urine Bilirubin NEGATIVE NEGATIVE mg/dL Urine Urobilinogen 0.2 0.2-1.0 mg/dL Urine Leukocyte Esterase NEGATIVE NEGATIVE Marvin/uL Current Medications Medications (Trade) Dose Ordered Sig/Beba Route PRN Reason Start Time Stop Time Status Last Admin Dose Admin Acetaminophen (TYLenol 325MG TAB) 650 mg Q6H PRN PO FEVER/MILD PAIN LEVEL 1-3 02/23/25 02:00 03/25/25 01:59 02/23/25 19:53 650 MG Acetaminophen (TYLenol 650MG SUPPOSITORY) 650 mg Q6H PRN RC FEVER / MILD PAIN 1-3 IF NPO 02/23/25 02:00 03/25/25 01:59 Aspirin (Aspirin 81mg Chew Tab) 81 mg DAILY PO 02/23/25 09:00 03/25/25 08:59 02/24/25 09:33 81 MG Atorvastatin Calcium (LIPItor 10MG) 10 mg HS PO 02/23/25 21:00 03/25/25 20:59 02/23/25 20:41 10 MG Clopidogrel Bisulfate (plaVIX 75MG) 75 mg DAILY PO 02/23/25 09:00 03/25/25 08:59 Dextrose (D50w) 50 ml AD PRN IV HYPOGLYCEMIA PROTOCOL 02/23/25 11:30 03/25/25 11:29 Docusate Sodium (COLace 100MG CAP) 100 mg BID PRN PO c 02/23/25 02:00 03/25/25 01:59 Empaglifozin (Jardiance 10mg) 10 mg DAILY PO 02/24/25 09:00 03/26/25 08:59 02/24/25 09:30 10 MG Enoxaparin Sodium (Lovenox) 40 mg DAILY SQ 02/24/25 09:00 03/26/25 08:59 02/24/25 09:23 40 MG Furosemide (LASix 20MG TAB) 20 mg DAILY PO 02/24/25 09:00 03/26/25 08:59 02/24/25 09:25 20 MG Glucagon (Glucagon 1mg Kit) 1 mg AD PRN IM HYPOGLYCEMIA PROTOCOL 02/23/25 11:30 03/25/25 11:29 Heparin Sodium (Porcine) (HEParin 5,000 UNIT VIAL) *calculation based on ACTUAL B... AD PRN IV HEPARIN PROTOCOL 02/23/25 02:00 02/23/25 07:07 DC 02/23/25 01:33 6,195 UNIT Heparin Sodium/ Dextrose 250 ml @ 0 mls/hr Q6H IV 02/23/25 02:00 02/23/25 16:48 DC 02/23/25 01:52 14 MLS/HR Insulin Human Regular (humuLIN R 100 UNIT/ML 3ML) INSULIN SLIDING SCAL... ACHS SQ 02/23/25 07:30 03/25/25 07:29 Labetalol HCl (TRANdate 20MG SYG) 10 mg Q2H PRN IV SBP GREATER THAN 180 02/23/25 02:00 03/25/25 01:59 Lactulose (Constulose 20gm/ 30ml Udcup) 20 gm Q6H PRN PO CONSTIPATION 02/23/25 02:00 03/25/25 01:59 Losartan Potassium (CozAAR 50 mg TAB) 50 mg DAILY PO 02/23/25 09:00 03/25/25 08:59 02/24/25 09:24 50 MG Metoprolol Succinate (TopROL XL) 12.5 mg DAILY PO 02/24/25 09:00 03/26/25 08:59 02/24/25 09:23 12.5 MG Metoprolol Tartrate (loprESSOR) 25 mg BID PO 02/23/25 09:00 02/24/25 06:59 DC Morphine Sulfate (morPHINE 4MG SYG) 4 mg Q4H PRN IVP SEVERE PAIN (7-10) 02/23/25 05:00 03/02/25 04:59 02/24/25 00:18 4 MG Ondansetron HCl (zoFRAN 4MG INJ) 4 mg Q6H PRN IVP NAUSEA/VOMITING 02/23/25 02:00 03/25/25 01:59 Sodium Chloride 500 ml @ 0 mls/hr Q0M IV 02/23/25 07:30 03/25/25 07:29 Spironolactone (Aldactone 25mg) 25 mg DAILY PO 02/24/25 09:00 03/26/25 08:59 02/24/25 09:24 25 MG Temazepam (restORIL 15 MG CAP) 15 mg HS PRN PO INSOMNIA/SLEEP 02/23/25 02:00 03/25/25 01:59 DIAGNOSTICS / RADIOLOGY: [ ] ASSESSMENT: NSTEMI, POA Stress cardiomyopathy, POA Acute systolic heart failure due to above, POA Intractable left hip pain s/p twisting motion. Diabetes mellitus with hyperglycemia Hypertension Hypercholesteremia Psoriasis PLAN: Monitor off antibiotics for signs of infection Trend WBCs O2 nasal cannula as needed Monitor blood pressure Follow up with Cardiology -cardiac optimization with aspirin, Plavix, atorvastatin, empagliflozin, losartan, metoprolol succinate, spironolactone -I agree with discontinuing heparin drip Diabetic diet Continue docusate No need for GI prophylaxis No need for IV fluids Trend a.m. BMP Replete electrolytes as necessary DVT prophylaxis with Lovenox Trend a.m. CBC Continue glucose checks a.c. and HS with insulin sliding scale I agree with obtaining CT of the head Full code Case was discussed with patient's nurse at bedside Attention time greater than 30 minutes JM INIGUEZ IV, MD Feb 24, 2025 10:35
[2025-02-24] MEDS: HYDROcodone/APAP 5/325 1 TAB TABLET PO PRN (13:39)
[2025-02-24] MEDS: CYCLOBENZAPRINE HCL 10 MG TABLET PO ONE (13:40)
[2025-02-25 03:30] VITALS: BP 128/53; PULSE 63; RESP 18; TEMP 98.2
[2025-02-25 05:10] LABS: NUCLEATED RED BLOOD CELLS 0.0 % (0.0-0.19); PLATELET COUNT (AUTO) 346.0 K/uL (130-400); RED BLOOD CELL COUNT(AUTO) 3.83 MIL/uL (4.00-5.50); RED CELL DISTRIBUTION WIDTH 12.5 % (11.0-15.5); WHITE BLOOD COUNT (AUTO) 7.9 K/uL (4.8-10.8)
[2025-02-25 05:27] LABS: CREATININE 0.9 mg/dL (0.5-1.0); GLOMERULAR FILTR. RATE CALC 69.0 mL/min (>90); GLUCOSE,RANDOM 144.0 mg/dL (70-105); SODIUM SERUM 139.0 mmol/L (136-145); UREA NITROGEN, BLOOD 19.0 mg/dL (7-18)
--- NOTE | 2025-02-25 06:54 | PN ---
[facility] Cardiology Progress Note CARDIOLOGY PROGRESS NOTE FEBRUARY 25, 2025 Problems: 1. Left hip pain with suspected subcapital fracture of the right femur 2. Non ST-elevation myocardial infarction 3. Takotsubo syndrome with normal coronary arteries and apical ballooning, ejection fraction 35% 4. Diabetes mellitus type 2 5. Chronic kidney disease stage IIIA 6. Dyslipidemia 7. Hypertension The patient had presented with left hip pain and elevated troponins consistent with a non ST-elevation [place]. Catheterization revealed normal coronary arteries with ballooning of the apex consistent with takotsubo syndrome. 2D echo shows ejection fraction of 35-40% trace mitral regurgitation trace aortic insufficiency. Cath site has been healing well. Blood pressure running 130-160 systolic heart rate in the 60s the patient is afebrile. White [place] 7.9 from 25540 on admission hemoglobin 11.6 platelet count [id number]. Potassium 4.2 BUN 19 creatinine 0.9. The patient continues on aspirin atorvastatin clopidogrel empagliflozin Lovenox for DVT prophylaxis furosemide losartan 50 mg daily metoprolol succinate 12.5 mg daily and spironolactone. We will plan on increasing losartan to 100 mg daily for additional blood pressure control. Her hip x-ray on admission showed questionable subcapital fracture of the right femur and right femoral neck shortening. A CT scan was recommended and was performed yesterday currently report is pending. If the patient does require an surgery clopidogrel can be held. If no surgery is required she can follow up me as an outpatient we will plan on a 90 day echo to reassess ejection fraction. When discharged I would recommend a basic metabolic panel weekly x2 to watch for hyperkalemia on spironolactone. NAKIA LOPEZ MD Feb 25, 2025 06:54
[2025-02-25 07:52] VITALS: BP 142/75; PULSE 64; RESP 20; TEMP 98.8
[2025-02-25 09:26] VITALS: O2SAT 98
--- NOTE | 2025-02-25 10:02 | DS ---
Discharge Summary Hospital Course Summary: Patient presented due to left hip pain he was found to have elevated troponin in the thousands. Patient was taken emergently to the laboratory monitor which demonstrated takotsubo syndrome with normal coronaries, apical ballooning and EF of 35%. Patient was placed on goal-directed medical therapy. CT of the left hip was obtained which demonstrated marginal osteophytes. PT evaluated the patient's determined the patient is likely has IT band spasms and was provided with the exercises to do at home. Decision was made to discharge the patient to follow up PCP and Cardiology. Medications as per med rec. Lighter(s): Final Cardiology recommendations: The patient had presented with left hip pain and elevated troponins consistent with a non ST-elevation [place]. Catheterization revealed normal coronary arteries with ballooning of the apex consistent with takotsubo syndrome. 2D echo shows ejection fraction of 35-40% trace mitral regurgitation trace aortic insufficiency. Cath site has been healing well. Blood pressure running 130-160 systolic heart rate in the 60s the patient is afebrile. White count [place] come down [place] 7.9 from 45614 on admission hemoglobin 11.6 platelet count [id number]. Potassium 4.2 BUN 19 creatinine 0.9. The patient continues on aspirin atorvastatin clopidogrel empagliflozin Lovenox for DVT prophylaxis furosemide losartan 50 mg daily metoprolol succinate 12.5 mg daily and spironolactone. We will plan on increasing losartan to 100 mg daily for additional blood pressure control. Her hip x-ray on admission showed questionable subcapital fracture of the right femur and right femoral neck shortening. A CT scan was recommended and was performed yesterday currently report is pending. If the patient does require an surgery clopidogrel can be held. If no surgery is required she can follow up me as an outpatient we will plan on a 90 day echo to reassess ejection fraction. When discharged I would recommend a basic metabolic panel weekly x2 to watch for hyperkalemia on spironolactone. Assessment/Plan: ASSESSMENT: NSTEMI, POA Stress cardiomyopathy, takotsubo syndrome, EF of 35%, POA Acute systolic heart failure due to above, POA Intractable left hip pain s/p twisting motion. Diabetes mellitus with hyperglycemia Hypertension Hypercholesteremia Psoriasis PLAN: Monitor off antibiotics for signs of infection Trend WBCs O2 nasal cannula as needed Monitor blood pressure Follow up with Cardiology -cardiac optimization with aspirin, Plavix, atorvastatin, empagliflozin, losartan, metoprolol succinate, spironolactone -I agree with discontinuing heparin drip Diabetic diet Continue docusate No need for GI prophylaxis No need for IV fluids Trend a.m. BMP Replete electrolytes as necessary DVT prophylaxis with Lovenox Trend a.m. CBC Continue glucose checks a.c. and HS with insulin sliding scale I agree with obtaining CT of the head Full code Case was discussed with patient's nurse at bedside Attention time greater than 30 minutes Home Medications: Reported Medications Ergocalciferol (Vitamin D2) (Vitamin D2) 1,250 Mcg (35603 Unit) Capsule, 1 CAP PO QWEEK for 28 Days, #4 CAP 0 Refills 02/23/25 Metformin HCl (Metformin HCl) 500 Mg Tablet, 1 TAB PO BID for 30 Days, #60 TAB 0 Refills 02/23/25 Atorvastatin Calcium (LIPITOR) 20 Mg Tab, 1 TAB PO DAILY for 30 Days, #30 TAB 0 Refills 02/23/25 Dapagliflozin Propanediol (Farxiga) 5 Mg Tablet, 1 TAB PO DAILY for 30 Days, #30 TAB 0 Refills 02/23/25 Glipizide (Glipizide) 5 Mg Tablet, 1 TAB PO BID for 30 Days, #60 TAB 0 Refills 02/23/25 Losartan Potassium (Losartan Potassium) 50 Mg Tablet, 1 TAB PO DAILY for 30 Days, #30 TAB 0 Refills 02/23/25 Time spent arranging discharge: 31-60 minutes JM INIUGEZ IV, MD Feb 25, 2025 10:02
--- NOTE | 2025-02-25 10:06 | PN ---
[facility] PROGRESS NOTE Date of Service: Feb 25, 2025 Time of Service: 10:05 SUBJECTIVE: 02/24 Patient continues to have hip pain. She underwent left heart catheterization yesterday which demonstrated stress cardiomyopathy, coronaries were nonocclusive 02/[address] results. REVIEW OF SYSTEMS 12-ROS reviewed with with patient. All pertinent positives mentioned above. Otherwise negative, noncontributory, non-pertinent. PHYSICAL EXAM GENERAL APPEARANCE: The patient is awake, alert, and oriented, in no acute cardiopulmonary distress. NEUROLOGICAL: Cranial nerves II-XII grossly intact. Motor is 5/5 in bilateral upper and lower extremities proximal to distal. No sensory deficits. HEENT: Face is symmetric. Pupils are equal and reactive. Extraocular movements are intact. NECK: Supple. No JVD. No thyromegaly. No submental, submandibular, pre- /postauricular, occipital or supraclavicular lymphadenopathy. CHEST: Normal chest expansion. No Telemetry. LUNGS: Absence of any rales, rhonchi or any wheezing. CARDIOVASCULAR: Regular. S1 and S2 normal. No appreciable rubs, murmurs or gallops. ABDOMEN: Soft, nontender, and nondistended. There is no rebound, voluntary guarding, or rigidity. : Deferred. No Magallanes. EXTREMITIES: Non-edematous and not cyanotic. No clubbing. Good capillary refill. Limited range of motion to the left hip due to pain. SKIN: No skin breakdown. Vital Signs (last 8hr) Date Time Temp Pulse Resp B/P (MAP) Pulse Ox O2 Delivery O2 Flow Rate FiO2 02/25/25 09:26 98 Room Air* 0 21 02/25/25 07:52 98.8 64 20 142/75 98 Room Air 02/25/25 03:30 98.2 63 18 128/53 93 Room Air LABS: Laboratory: Test 02/25/25 06:17 02/25/25 04:11 02/24/25 03:59 02/23/25 19:40 Range/Units Whole Blood Glucose 122 H 70-110 MG/DL White Blood Count 7.9 4.8-10.8 K/uL Red Blood Count 3.83 L 4.00-5.50 MIL/uL Hemoglobin 11.6 L 12.0-16.0 g/dL Hematocrit 34.4 L 36-48 % Mean Corpuscular Volume 89.8 79-99 fL Mean Corpuscular Hemoglobin 30.3 27.0-33.0 pg Mean Corpuscular Hemoglobin Concent 33.7 32.0-36.0 g/dL Red Cell Distribution Width 12.5 11.0-15.5 % Platelet Count 346 130-400 K/uL Mean Platelet Volume 9.7 7.5-10.5 fL Nucleated Red Blood Cells 0.0 0.0-0.19 % Sodium Level 139 136-145 mmol/L Potassium Level 4.2 3.5-5.1 mmol/L Chloride Level 105 101-111 mmol/L Carbon Dioxide Level 27 21-32 mmol/L Blood Urea Nitrogen 19 H 7-18 mg/dL Creatinine 0.9 0.5-1.0 mg/dL Glomerular Filtration Rate Calc 69 >90 mL/min Random Glucose 144 H 70-105 mg/dL Total Calcium 8.6 8.5-10.1 mg/dL Phosphorus Level 4.4 2.5-4.9 mg/dL Magnesium Level 1.90 1.80-2.40 mg/dL Troponin I High Sensitivity 8718 *H 4-50 ng/L Test 02/23/25 16:04 02/23/25 11:13 Range/Units Prothrombin Time 10.3 9.6-11.6 SEC Prothromb Time International Ratio 0.97 0.85-1.15 Activated Partial Thromboplast Time 26.1 #L 26.3-35.5 SEC Kaolin Activated Coagulation Time 164 H 74-137 SEC Current Medications Medications (Trade) Dose Ordered Sig/Beba Route PRN Reason Start Time Stop Time Status Last Admin Dose Admin Acetaminophen (TYLenol 325MG TAB) 650 mg Q6H PRN PO FEVER/MILD PAIN LEVEL 1-3 02/23/25 02:00 03/25/25 01:59 02/23/25 19:53 650 MG Acetaminophen (TYLenol 650MG SUPPOSITORY) 650 mg Q6H PRN RC FEVER / MILD PAIN 1-3 IF NPO 02/23/25 02:00 03/25/25 01:59 Acetaminophen/ Hydrocodone Bitart (NORco 5/325MG) 1 tab Q4H PRN PO MODERATE PAIN (4-6) 02/24/25 13:30 03/01/25 13:29 02/24/25 20:41 1 TAB Aspirin (Aspirin 81mg Chew Tab) 81 mg DAILY PO 02/23/25 09:00 03/25/25 08:59 02/25/25 09:20 81 MG Atorvastatin Calcium (LIPItor 10MG) 10 mg HS PO 02/23/25 21:00 03/25/25 20:59 02/24/25 20:41 10 MG Clopidogrel Bisulfate (plaVIX 75MG) 75 mg DAILY PO 02/23/25 09:00 03/25/25 08:59 02/25/25 09:19 75 MG Dextrose (D50w) 50 ml AD PRN IV HYPOGLYCEMIA PROTOCOL 02/23/25 11:30 03/25/25 11:29 Docusate Sodium (COLace 100MG CAP) 100 mg BID PRN PO c 02/23/25 02:00 03/25/25 01:59 Empaglifozin (Jardiance 10mg) 10 mg DAILY PO 02/24/25 09:00 03/26/25 08:59 02/25/25 09:20 10 MG Enoxaparin Sodium (Lovenox) 40 mg DAILY SQ 02/24/25 09:00 03/26/25 08:59 02/25/25 09:20 40 MG Furosemide (LASix 20MG TAB) 20 mg DAILY PO 02/24/25 09:00 03/26/25 08:59 02/25/25 09:20 20 MG Glucagon (Glucagon 1mg Kit) 1 mg AD PRN IM HYPOGLYCEMIA PROTOCOL 02/23/25 11:30 03/25/25 11:29 Heparin Sodium (Porcine) (HEParin 5,000 UNIT VIAL) *calculation based on ACTUAL B... AD PRN IV HEPARIN PROTOCOL 02/23/25 02:00 02/23/25 07:07 DC 02/23/25 01:33 6,195 UNIT Heparin Sodium/ Dextrose 250 ml @ 0 mls/hr Q6H IV 02/23/25 02:00 02/23/25 16:48 DC 02/23/25 01:52 14 MLS/HR Insulin Human Regular (humuLIN R 100 UNIT/ML 3ML) INSULIN SLIDING SCAL... ACHS SQ 02/23/25 07:30 03/25/25 07:29 02/24/25 21:35 4 UNIT Labetalol HCl (TRANdate 20MG SYG) 10 mg Q2H PRN IV SBP GREATER THAN 180 02/23/25 02:00 03/25/25 01:59 Lactulose (Constulose 20gm/ 30ml Udcup) 20 gm Q6H PRN PO CONSTIPATION 02/23/25 02:00 03/25/25 01:59 Losartan Potassium (CozAAR 100MG TAB) 100 mg DAILY PO 02/25/25 09:00 03/27/25 08:59 02/25/25 09:20 100 MG Losartan Potassium (CozAAR 50 mg TAB) 50 mg DAILY PO 02/23/25 09:00 02/25/25 07:11 DC 02/24/25 09:24 50 MG Metoprolol Succinate (TopROL XL) 12.5 mg DAILY PO 02/24/25 09:00 03/26/25 08:59 02/25/25 09:19 12.5 MG Metoprolol Tartrate (loprESSOR) 25 mg BID PO 02/23/25 09:00 02/24/25 06:59 DC Morphine Sulfate (morPHINE 4MG SYG) 4 mg Q4H PRN IVP SEVERE PAIN (7-10) 02/23/25 05:00 03/02/25 04:59 02/25/25 09:19 4 MG Ondansetron HCl (zoFRAN 4MG INJ) 4 mg Q6H PRN IVP NAUSEA/VOMITING 02/23/25 02:00 03/25/25 01:59 Sodium Chloride 500 ml @ 0 mls/hr Q0M IV 02/23/25 07:30 03/25/25 07:29 Spironolactone (Aldactone 25mg) 25 mg DAILY PO 02/24/25 09:00 03/26/25 08:59 02/25/25 09:19 25 MG Temazepam (restORIL 15 MG CAP) 15 mg HS PRN PO INSOMNIA/SLEEP 02/23/25 02:00 03/25/25 01:59 DIAGNOSTICS / RADIOLOGY: [ ] ASSESSMENT: NSTEMI, POA Stress cardiomyopathy, takotsubo syndrome, EF of 35%, POA Acute systolic heart failure due to above, POA Intractable left hip pain s/p twisting motion. Diabetes mellitus with hyperglycemia Hypertension Hypercholesteremia Psoriasis PLAN: Monitor off antibiotics for signs of infection Trend WBCs O2 nasal cannula as needed Monitor blood pressure Follow up with Cardiology -cardiac optimization with aspirin, Plavix, atorvastatin, empagliflozin, losartan, metoprolol succinate, spironolactone Diabetic diet Continue docusate No need for GI prophylaxis No need for IV fluids Trend a.m. BMP Replete electrolytes as necessary DVT prophylaxis with Lovenox Trend a.m. CBC Continue glucose checks a.c. and HS with insulin sliding scale Follow up CT left hip Full code Case was discussed with patient's nurse at bedside Attention time greater than 30 minutes JM INIGUEZ IV, MD Feb 25, 2025 10:06
--- NOTE | 2025-02-25 10:17 | HMCIMG ---
EXAM: CT left hip, without IV contrast. CLINICAL HISTORY: Pain TECHNIQUE: Axial images were acquired through the left hip without IV contrast. Reformatted images were reviewed. COMPARISON: None provided. FINDINGS: BONES: No acute fracture or aggressive appearing osseous lesion. JOINTS: No dislocation. Small left acetabular marginal osteophytes. Left hip joint is otherwise unremarkable. Small left hamstring ischial tuberosity attachment enthesopathy. SOFT TISSUES: The soft tissues are unremarkable. IMPRESSION: 1. No acute findings. 2. Small left acetabular marginal osteophytes. /[place]
[2025-02-25 12:00] VITALS: BP 138/65; PULSE 65; RESP 20; TEMP 98.6
[2025-02-25] MEDS: LACTULOSE 20 GM/30 ML UDCUP PO PRN (13:12)
--- NOTE | 2025-02-25 15:00 | NUR ---
Patient evaluated. Noted with tender and spastic L IT band. Performed gentle stretches in laying as well as trigger point releases with good progress. Patient given handout of HEP to continue at home with demonstration and return demonstration from patient. Patient educated to follow up with primary MD if pain worsens for OP PT referral. All questions answered. DC from PT at this time. Addendum: 02/25/25 at 1658 by JIN CARBALLO PT Amended: Links added.
[2025-02-25 16:00] VITALS: BP 111/67; PULSE 64; RESP 20; TEMP 98.6
[2025-02-25] MEDS ORDERED: IBUP-2784 PO (17:26)
--- NOTE | 2025-02-25 18:15 | NUR ---
GIVEN DISCHARGE INSTRUCTIONS, VERBALIZED UNDERSTANDING. REMOVED SALINE LOCK FROM RIGHT FOREARM AND LEFT HAND, IV SITES WITHOUT REDNESS NOTED. REMOVED TELE PACK.
--- NOTE | 2025-02-25 18:31 | NUR ---
TAKEN TO PRIVATE CAR ALONG WITH PERSONAL BELONGINGS VIA WHEELCHAIR BY GLADIS FRANCES.
== END 2025-02-25 18:30 | disposition home or self-care (01) | DRG 280 ==
LOC: EDH 22:48 → EDBD 22:48 → EDHIP 02-23 01:32 → 2DH 02-23 15:16
PROVIDERS: ADMIT Internal Medicine; ATTEND Internal Medicine
PROC: 4A023N7 Measurement of Cardiac Sampling and Pressure, Left Heart, Percutaneous Approach (ICD-10-PCS; principal; 2025-02-23)
PROC: B2111ZZ Fluoroscopy of Multiple Coronary Arteries using Low Osmolar Contrast (ICD-10-PCS; 2025-02-23)
DX: I21.4 Non-ST elevation (NSTEMI) myocardial infarction (principal); I50.21 Acute systolic (congestive) heart failure; I13.0 Hypertensive heart and chronic kidney disease with heart failure and stage 1 through stage 4 chronic kidney disease, or unspecified chronic kidney disease; E11.22 Type 2 diabetes mellitus with diabetic chronic kidney disease; E11.65 Type 2 diabetes mellitus with hyperglycemia; E78.00 Pure hypercholesterolemia, unspecified; I35.8 Other nonrheumatic aortic valve disorders; L40.9 Psoriasis, unspecified; N18.31 Chronic kidney disease, stage 3a; Z79.899 Other long term (current) drug therapy
CPT/HCPCS: 36415; 71045; 73502; 73700; 76376; 80048; 80053; 80076; 81003; 82550; 82948; 83036; 83735; 83880; 84100; 84443; 84484; 85025; 85027; 85347; 85610; 85730; 93005; 93306; 93356; 93458; 96374; 96375; 99156; 99157; 99285; C1760; C1894; G0378; J1200; J1644; J1650; J1815; J2250; J2270; J3490; Q9967; Q9965